=== PATIENT | female | born 1950 | race Caucasian/White ===

== ENCOUNTER 2025-01-27 18:37 | Emergency (ER) | payer MEDICARE, SELFPAY ==
[2025-01-27 18:38] VITALS: BP 105/76; PULSE 96; RESP 17; O2SAT 93
[2025-01-27 18:45] VITALS: TEMP 36.8
--- NOTE | 2025-01-27 18:47 | ECG_ITS ---
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 Measurements Intervals [place] Rate: 61 P: 59 UT: 119 QRS: -23 QRSD: 77 T: 27 QT: 366 QTc: 370 Interpretive Statements SINUS RHYTHM WITH SHORT UT INTERVAL POSSIBLE LEFT ATRIAL ENLARGEMENT [-0.1mV P-WAVE IN V1/V2] BORDERLINE LEFT AXIS DEVIATION [QRS AXIS < -20] J POINT ST ELEVATION IN THE LATERAL LIMB LEADS, CONSIDER EARLY REPOLARIZATION, INJURY,OR FOCAL PERICARDITIS No previous ECG available for comparison Electronically Signed On 01-29-2025 13:52:13 CDT by Jeancarlos Ceja M.D. [email or web address]
--- NOTE | 2025-01-27 18:47 | CTR_ITS ---
PROCEDURE INFORMATION: Exam: CT Head Without Contrast Exam date and time: 01/27/2025 6:56 PM Age: 74 years old Clinical indication: Injury or trauma; Blunt trauma (contusions or hematomas); EMS arrival for ground level fall at home. C collar in place. ; Additional info: Fall/maybe hit head/neckpain TECHNIQUE: Imaging protocol: Computed tomography of the head without contrast. Radiation optimization: All CT scans at this facility use at least one of these dose optimization techniques: automated exposure control; mA and/or kV adjustment per patient size (includes targeted exams where dose is matched to clinical indication); or iterative reconstruction. COMPARISON: CT cervical spin wo con* [id number] 01/27/2025 6:56 PM RADIATION DOSE METRICS: Total DLP (mGy-cm): 1210.9 FINDINGS: Brain: Normal. No hemorrhage. Unremarkable white matter. No mass effect. Cerebral ventricles: No ventriculomegaly. Paranasal sinuses: Visualized sinuses are unremarkable. No fluid levels. Mastoid air cells: Visualized mastoid air cells are well aerated. Bones: Unremarkable. No acute fracture. Soft tissues: Unremarkable. CT/CT head wo con* [id number] IMPRESSION: No acute intracranial abnormality.
--- NOTE | 2025-01-27 18:47 | CTR_ITS ---
PROCEDURE INFORMATION: Exam: CT Cervical Spine Without Contrast Exam date and time: 01/27/2025 6:56 PM Age: 74 years old Clinical indication: Injury or trauma; Blunt trauma; Prior surgery; Surgery date: 6+ months; Surgery type: Cervical fusion; EMS arrival for ground level fall at home. C collar in place. ; Additional info: Fall/neck pain TECHNIQUE: Imaging protocol: Computed tomography of the cervical spine without contrast. Radiation optimization: All CT scans at this facility use at least one of these dose optimization techniques: automated exposure control; mA and/or kV adjustment per patient size (includes targeted exams where dose is matched to clinical indication); or iterative reconstruction. COMPARISON: CT head wo con* [id number] 01/27/2025 6:56 PM RADIATION DOSE METRICS: Total DLP (mGy-cm): 266 FINDINGS: Bones: Fusion hardware of the cervical spine. Probable at least moderate bilateral neural foraminal narrowing at the C 3 4 level. No definite acute fracture, subluxation, dislocation. Lungs: Lung apices are normal. Vasculature: Aortic atherosclerosis. Soft tissues: Unremarkable. CT/CT cervical spin wo con* [id number] IMPRESSION: Aortic atherosclerosis. No definite acute fracture, subluxation, dislocation of the cervical spine.
--- NOTE | 2025-01-27 18:47 | XRR_ITS ---
PROCEDURE INFORMATION: Exam: XR Right Shoulder Exam date and time: 01/27/2025 7:09 PM Age: 74 years old Clinical indication: Injury or trauma; Blunt trauma (contusions or hematomas); Right; Prior surgery; Surgery date: 6+ months; Surgery type: Cervical fusion; EMS arrival for ground level fall at home. C/O RT shoulder pain; Additional info: Fall/pain TECHNIQUE: Imaging protocol: Radiologic exam of the right shoulder. Views: 2 or more views. COMPARISON: CT cervical spin wo con* [id number] 01/27/2025 6:56 PM FINDINGS: Bones/joints: Moderate to severe degenerative changes of the AC joint and glenohumeral joint. Postsurgical changes of the lower cervical spine. Soft tissues: Normal. XR/XR shoulder RT min 2V* [id number] IMPRESSION: No definite acute fracture, subluxation, dislocation.
--- NOTE | 2025-01-27 18:47 | XRR_ITS ---
PROCEDURE INFORMATION: Exam: XR Left Hip Exam date and time: 01/27/2025 7:09 PM Age: 74 years old Clinical indication: Injury or trauma; Blunt trauma (contusions or hematomas); EMS arrival for ground level fall at home. C/O left hip pain. ; Additional info: Fall/hip pain, w/ pelvis TECHNIQUE: Imaging protocol: Radiologic exam of the left hip. Views: 2 or 3 views hip with pelvis when performed. COMPARISON: No relevant prior studies available. FINDINGS: Exam limited by body habitus. Bones/joints: Unremarkable. No acute fracture. Soft tissues: Unremarkable. XR/XR hip LT 2-3V wo/w pel* [id number] IMPRESSION: No acute findings.
--- OUTSIDE RECORDS SUMMARY | 2025-01-27 18:47 | XMS_ITS | Clinical Summary ---
Author Organization [facility] Address [address] [place] [address] [place] [address] Phone Care Team Providers Care Relationship Counselor Name Role Phone Unavailable Primary Care Provider Unavailabl e Allergies Active Allergy Reactions Criticality Noted Date Comments Morphine Itching High 10/18/2024 Medications pregabalin (Lyrica) 150 mg capsule Take 150 mg by mouth 2 (two) times a day. 07/27/2024 Active levothyroxine (Synthroid, Levoxyl) 112 mcg tablet Take 112 mcg by mouth 1 (one) time each day before breakfast. 08/24/2024 Active traZODone (Desyrel) 100 mg tablet Take 100 mg by mouth every night. 08/24/2024 Active atorvastatin (Lipitor) 10 mg tablet Take 10 mg by mouth 1 (one) time each day. 08/24/2024 Active Symbicort 80-4.5 mcg/actuation inhaler Inhale 2 puffs 2 (two) times a day. 04/21/2024 Active Encounters Date Type Department Care Team Description 12/14/2024 Orders Only [facility] [address] [place] [id number] Lakesha Castro LPN Bilateral carpal tunnel syndrome (Primary Dx) 11/27/[address] [facility] MED[facility] OFFICE BUILDING [address] [id number] Manohar Westbrook MD SY MRI image request and order questions from Last 3 Months Social History Tobacco Use Types Packs/Day Years Used Date Smoking Tobacco: Never Smokeless Tobacco: Never Tobacco Cessation:Counseling Given: Not Answered PHQ-2 Answer Date Recorded Patient Health Questionnaire-2 Score 0 10/18/2024 [facility] - Mental Health Answer Date Recorde d Little interest or pleasure in doing things Not at all 10/18/2024 Feeling down, depressed, or hopeless Not at all 10/18/2024 Feeling of Stress Not on file 10/18/2024 Comments Unknown Sex and Gender Information Value Date Recorded Sex Assigned at Not on file Legal Sex Female 9:13 AM CDT Gender Identity Not on file Sexual Orientation Not on file Last Filed Vital Signs Vital Sign Reading Time Taken Comments Blood Pressure - - Pulse - - Temperature - - Respiratory Rate 18 10/18/2024 2:21 PM CDT Oxygen Saturation - - Inhaled Oxygen Concentration - - Weight 99.8 kg (220 lb) 10/18/2024 2:21 PM CDT Height 149.9 cm (4' 11 ) 10/18/2024 2:21 PM CDT Body Mass Index 44.43 10/18/2024 2:21 PM CDT Plan of Treatment Health Maintenance Due Date Last Done Comments CT Colonography 1950 Colonoscopy 1950 Colorectal Cancer Screening 1950 FIT-DNA 1950 FIT 1950 FOBT 1950 Sigmoidoscopy 1950 MMR Vaccines (1 of 1 - Stand olamide series) 1953 DTaP,Tdap,and Td Vaccines (1 - Tdap) 11/26/1959 Varicella Vaccines (1 of 2 - 13+ 2-dose series) 1965 Social Drivers of Health (SDoH) 1970 Mammogram 1992 Pneumococcal Vaccine: 50+ Ye ars (1 of 1 - PCV) 2002 Zoster Vaccines (1 of 2) 2002 RSV Vaccines (1 - Risk 60-74 years 1-dose series) 2012 Complete Fall Risk Assessment 2017 COVID-19 Vaccine (1 - 2023-2 5 season) 2024 Influenza Vaccine (#1) 2025 Depression Screening 10/19/2025 10/18/2024 HIB Vaccines Aged Out No longer eligi ble based on patient's age to complete this topic HPV Vaccines Aged Out No longer eligi ble based on patient's age to complete this topic Hepatitis A Vaccines Aged Out No long er eligible based on patient's age to complete this topic Hepatitis B Vaccines Aged Out No long er eligible based on patient's age to complete this topic IPV Vaccines Aged Out No longer eligi ble based on patient's age to complete this topic Meningococcal B Vaccine Aged Out No l onger eligible based on patient's age to complete this topic Meningococcal Vaccine Aged Out No cj sim eligible based on patient's age to complete this topic Pneumococcal Vaccine Aged Out No long er eligible based on patient's age to complete this topic Rotavirus Vaccines Aged Out No longer eligible based on patient's age to complete this topic Insurance [employer] MEDICARE
--- OUTSIDE RECORDS SUMMARY | 2025-01-27 18:47 | XMS_ITS | Encounter Summary ---
Author Organization [employer] Address 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 No 12/16/2024 Comments No Sex and Gender Information Value Date Recorded Sex Assigned at Not on file Legal Sex Female 2:20 PM CDT Gender Identity Not on file Sexual Orientation Not on file documented as of this encounter Plan of Treatment Not on file documented as of this encounter Visit Diagnoses Not on filedocumented in this encounter
--- OUTSIDE RECORDS SUMMARY | 2025-01-27 18:47 | XMS_ITS | Clinical Summary ---
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 Active traZODone (DESYREL) 50 mg tablet Take 50 mg by mouth daily at bedtime. Active lamoTRIgine (LaMICtal) 100 mg tablet Take 100 mg by mouth daily. Active DULoxetine (CYMBALTA) 20 mg Capsule, Delayed Release(E.C.) Take 20 mg by mouth daily. Active levothyroxine 25 mcg tablet Take 25 mcg by mouth daily in the morning. Active citalopram (CeleXA) 10 mg tablet Take 10 mg by mouth daily. Active traMADol (ULTRAM) 50 mg tablet Take by mouth every 6 hours as needed for Pain. Active Encounters Date Type Department Care Team Description 01/24/2025 External Device Data [facility]CTION Provider, Abstract 01/17/2025 External Device Data [facility]CTION Provider, Abstract 01/16/2025 External Device Data [facility]CTION Provider, Abstract 12/27/2024 Orders Only [facility] Admitting [address] [facility] [address] [place] [id number] Mary Posada DO Bilateral lower extremity edema (Primary Dx); Dyspnea, unspecified type 12/19/2024 External Device Data [facility]STRACTION Provider, Abstract 12/19/2024 External Device Data [facility]STRACTION Provider, Abstract 12/19/2024 External Device Data [facility]STRACTION Provider, Abstract 12/16/2024 2:20 PM CDT - 12/16/2024 3:55 PM CDT Emergency [facility] Emergency Medicine [address] [place] [address] Thomas Mora DO Acute congestive heart failure, unspecified heart failure type (CMS/HCC) (Primary Dx) Discharge Disposition: Home or Self Care 12/16/2024 Travel from Last 3 Months Social History Tobacco Use Types Packs/Day Years Used Date Smoking Tobacco: Never Smokeless Tobacco: Never Tobacco Cessation:Counseling Given: Not Answered Alcohol Use Standard Drinks/Week Comments Never 0 [...] Sign Reading Time Taken Comments Blood Pressure 113/96 12/16/2024 3:45 PM CDT Pulse 87 12/16/2024 3:45 PM CDT Temperature 36.5 C (97.7 F) 12/16/2024 2:20 PM CDT Respiratory Rate 22 12/16/2024 3:45 PM CDT Oxygen Saturation 94% 12/16/2024 3:45 PM CDT Inhaled Oxygen Concentration - - Weight 110.1 kg (242 lb 11.2 oz) 12/16/2024 2:20 PM CDT Height 149.9 cm (4' 11 ) 12/16/2024 2:20 PM CDT Body Mass Index 49.02 12/16/2024 2:20 PM CDT Plan of Treatment Health Maintenance Due Date Last Done Comments DTAP/TDAP/TD VACCINES (1 - Tdap) 11/26/1971 BREAST CANCER SCREENING 1992 COLORECTAL SCREENING 1997 Colorectal Cancer Screening 1997 FIT-DNA Q 3 years 1997 FIT/FOBT Q 1 year 1997 Flex Sig/CT Colonography Q 5 years 1997 PNEUMOCOCCAL VACCINE 50+ YEARS (1 of 1 - PCV) 11/26/19 03 ZOSTER VACCINE (1 of 2) 2002 RSV VACCINE (60+ or ) (1 - Risk 60-74 years 1-dose series) 2012 OSTEOPOROSIS SCREENING 2017 INFLUENZA VACCINE (#1) 2024 Procedures Procedure Name Priority Date/Time Associated Diagnosis Comments XR CHEST PA OR AP 1 VW Stat 3:25 PM CDT TROPONIN BASELINE, 5TH GEN Stat 12/16/2024 2:53 PM CDT BRAIN NATRIURETIC PEPTIDE, BNP OR PROBNP Stat 12/16/2024 2:53 PM CDT COMPREHENSIVE METABOLIC PANEL Stat 12/16/2024 2:53 PM CDT CBC WITH DIFFERENTIAL Stat 12/16/2024 2:53 PM CDT from Last 3 Months Results * XR CHEST PA OR AP 1 VW (12/16/2024 3:25 PM CDT) Anatomical Region Laterality Modality Chest Computed Radiogr aphy 12/16/2024 3:25 PM CDT Impressions 12/16/2024 3:43 PM CDT Impression: No evidence of infiltrates. Narrative 12/16/2024 3:43 PM CDT Exam: XR CHEST PA OR AP 1 VW Date/Time of Exam: 12/16/2024 3:25 PM Reason For Exam: Shortness of Breath SOB Diagnosis: See Reason for Exam The heart size is normal. The lungs are clear. No pneumothorax is seen. Procedure Note Gonzalo Saab MD - 12/16/2024 Exam: XR CHEST PA OR AP 1 VW Date/Time of Exam: 12/16/2024 3:25 PM Reason For Exam: Shortness of Breath SOB Diagnosis: See Reason for Exam The heart size is normal. The lungs are clear. No pneumothorax is seen. Impression: No evidence of infiltrates. Thomas Griggs Law DO DIAGNOSTIC IMAGING ORDERABLES Final Result * TROPONIN BASELINE, 5TH GEN (12/16/2024 2:53 PM CDT) TROPONIN T, BASELINE 5TH GEN 9 <=10 ng/L 12/16/2024 3:28 PM CDT [facility] Blood Venipuncture / Unknown 12/16/2024 2:53 PM CDT 12/16/2024 3:02 PM CDT Narrative [facility] - 12/16/2024 3:28 PM CDT Troponin Detectable but normal range. Thomas Griggs Law DO CHEMISTRY ORDERABLES Final Res ult [facility] CLIA # [id number] [address] [place] [address] * (ABNORMAL) CBC WITH DIFFERENTIAL (12/16/2024 2:53 PM CDT) WBC 6.8 4.0 - 10.0 K/uL 12/16/2024 3:15 PM [facility] RBC 4.85 3.93 - 5.22 M/uL 12/16/2024 3:15 PM [facility] HEMOGLOBIN 12.8 11.2 - 15.7 g/dL 12/16/2024 3:15 PM [facility] HEMATOCRIT 40.1 34.1 - 44.9 % 12/16/2024 3:15 PM [facility] MCV 82.7 79.4 - 94.8 fL 12/16/2024 3:15 PM [facility] MCH 26.4 25.6 - 32.2 pg 12/16/2024 3:15 PM [facility] MCHC 31.9(L) 32.2 - 35.5 g/dL 12/16/2024 3:15 PM [facility] RDW 15.1(H) 11.0 - 14.5 % 12/16/2024 3:15 PM [facility] RDW-STDEV 45.1 36.9 - 56.9 fL 12/16/2024 3:15 PM [facility] PLATELETS 300 163 - 337 K/uL 12/16/2024 3:15 PM CDT [facility] MPV 9.0(L) 10.0 - 14.8 fL 12/16/2024 3:15 PM [facility] NEUTROPHILS 63 34 - 71 % 12/16/2024 3:15 PM [facility] LYMPHOCYTES 18(L) 19 - 52 % 12/16/2024 3:15 PM T [facility] MONOCYTES 12 5 - 13 % 12/16/2024 3:15 PM CDT [facility] EOSINOPHILS 6 1 - 6 % 12/16/2024 3:15 PM CDT [facility] BASOPHILS 0 0 - 1 % 12/16/2024 3:15 PM [facility] IMMATURE GRANULOCYTES 1 % 12/16/2024 3:15 PM [facility] NEUTROPHIL ABSOLUTE 4.28 1.56 - 6.13 K/uL 12/16/2024 3:15 PM [facility] LYMPHOCYTE ABSOLUTE 1.24 1.20 - 3.40 K/uL 12/16/2024 3:15 PM T [facility] MONOCYTE ABSOLUTE 0.82(H) 0.24 - 0.36 K/uL 12/16/2024 3:15 PM [facility] EOSINOPHIL ABSOLUTE 0.37(H) 0.04 - 0.36 K/uL 12/16/2024 3:15 PM [facility] BASOPHILS ABSOLUTE 0.03 0.01 - 0.08 K/uL 12/16/2024 3:15 PM T [facility] IMMATURE GRANULOCYTES ABSOLUTE 0.04 K/uL 12/16/2024 3:15 PM [facility] Blood Venipuncture / Unknown 12/16/2024 2:53 PM CDT 12/16/2024 3:02 PM CDT Thomas Griggs Law DO HEMATOLOGY ORDERABLES Final Re sult [facility] CLIA # [id number] [address] [place] [address] * (ABNORMAL) BRAIN NATRIURETIC PEPTIDE, BNP OR PROBNP (12/16/2024 2:53 PM CDT) PROBNP, N TERMINAL 453(H) 0 - 125 pg/mL 12/16/2024 3:28 PM CDT [facility] Comment: INTERPRETIVE COMMENT based on diagnosis: Diagnostic NT pro-BNP cutoffs for Heart Failure in the absence of renal failure is suggested for the following ranges <75 years: <125 pg/mL >=75 years: <450 pg/mL Exclusionary rule out cut-point for Acute Decompensated Heart Failure(ADHF) All ages: <300 pg/mL Diagnostic NT pro-BNP cutoffs for Acute Decompensated Heart Failure(ADHF) in the absence of renal failure is suggested for the following ages <50 years: > 450 pg/mL 50-75 years: > 900 pg/mL >75 years: >1800 pg/mL Blood Venipuncture / Unknown 12/16/2024 2:53 PM CDT 12/16/2024 3:02 PM CDT us Thomas Griggs Law DO CHEMISTRY ORDERABLES Final [id number] [address] [place] [address] * (ABNORMAL) COMPREHENSIVE METABOLIC PANEL (12/16/2024 2:53 PM CDT) SODIUM 142 136 - 145 mmol/L 12/16/2024 3:28 PM CDT [facility] POTASSIUM 4.1 3.5 - 5.1 mmol/L 12/16/2024 3:28 PM CDT [facility] CHLORIDE 105 98 - 107 mmol/L 12/16/2024 3:28 PM CDT [facility] CO2 27 22 - 29 mmol/L 12/16/2024 3:28 PM CDT [facility] CALCIUM 9.4 8.8 - 10.2 mg/dL 12/16/2024 3:28 PM CDT [facility] BUN 19 8 - 23 mg/dL 12/16/2024 3:28 PM [facility] CREATININE 0.88 0.51 - 0.95 mg/dL 12/16/2024 3:28 PM [facility] Comment:The GFR result is no t clinically significant on patients <18 or >70 years of age. GLUCOSE 101(H) 74 - 99 mg/dL 12/16/2024 3:28 PM [facility] TOTAL PROTEIN 6.3(L) 6.6 - 8.7 g/dL 12/16/2024 3:28 PM [facility] ALBUMIN 3.5 3.5 - 5.2 g/dL 12/16/2024 3:28 PM [facility] BILIRUBIN TOTAL 0.2 0.0 - 1.2 mg/dL 12/16/2024 3:28 PM [facility] ALKALINE PHOSPHATASE 70 35 - 104 U/L 12/16/2024 3:28 PM [facility] AST 21 0 - 35 U/L 12/16/2024 3:28 PM [facility] ALT 7 0 - 35 U/L 12/16/2024 3:28 PM [facility] GFR >60 mL/min/1.7 3 sq meter 12/16/2024 3:28 PM [facility] Comment:eGFR calculated with 2020 CKD-EPI equation. Vegetarian diet, extremely high or low muscle mass, and may affect results. Cystatin C with Glomerular Filtration Rate is a suitable alternative for these patients. ANION GAP 10 5 - 20 mmol/L 12/16/2024 3:28 PM [facility] Blood Venipuncture / Unknown 12/16/2024 2:53 PM CDT 12/16/2024 3:02 PM CDT us Thomas Griggs Law DO CHEMISTRY ORDERABLES Final Res ult [facility] CLIA # [id number] [address] [place] [address] from Last 3 Months Insurance [facility] DUAL COMPLETE PPO [facility] [id number]
--- NOTE | 2025-01-27 18:49 | W.ED.FALL ---
HPI - Fall General: Chief Complaint: Fall Stated Complaint: left hip/right shoulder pain s/p fall Time Seen by Provider: 01/27/25 18:39 Source: patient and EMS Mode of arrival: EMS Limitations: no limitations History of Present Illness: Patient is a 74-year-old female who is brought into the emergency department by ambulance due to a fall that occurred around 1500 at home. She states that she was walking out of her trailer, and stepped off wrong and fell onto her left hip. Also states that she tried to grab the rail with her right arm and is having pain in her right shoulder. She hollered for her family, and they were able to get her up and sit her in her recliner, and on EMS arrival she was seated and comfortable. She does not remember if she hit her head but is having mild right lateral neck pain that she thinks is from the shoulder. No loss of consciousness or use of blood thinner. She states that prior to the fall, she did take a couple of tramadol and only takes this as needed for chronic pain. No other injuries with the fall, no chest pain or shortness of breath or palpitations prior to the fall. No dizziness or lightheadedness at this time. Vitals are within normal limits. She uses O2 as needed. MD complaint: fall Onset (ago): hour(s) Fall from: down stairs (#) Fall witnessed: yes, by family Place fall occurred: home Loss of consciousness: None Prolonged down time: no Symptoms prior to fall: none Context: tripped/slipped Location of injury - extremities: Left: thigh and Right: shoulder Associated symptoms-after fall: Reports neck pain; Denies abdominal pain, chest pain or headache(s) Related Data Previous Rx's ?Medication ?Instructions ?Recorded cefdinir 300 mg capsule 300 mg PO BID 10 days #20 caps 01/27/25 Allergies Allergy/AdvReac Type Severity Reaction Status Date / Time morphine Allergy ADR-Itching Verified 01/27/25 18:46 Review of Systems General: Reports: 10 or more systems reviewed and unremarkable except in HPI and below Const: Reports: other (fall); Denies: fever(s) or chills Card: Denies: chest pain Resp: Denies: dyspnea or productive cough GI: Denies: abdominal pain, nausea, vomiting or diarrhea : Denies: flank pain Musc: Reports: neck pain and joint pain (left hip/right shoulder); Denies: back pain, extremity pain, extremity swelling, joint swelling, joint redness, joint warmth, limited range of motion or muscle weakness Skin/Breast: Denies: rash Neuro: Denies: headache(s), numbness in extremities or weakness in extremities Physical Exam Const: COMMON NORMALS: no acute distress, patient oriented x3 and no limitations GENERAL APPEARANCE: cooperative, comfortable and well developed ORIENTATION/CONSCIOUSNESS: Yes awake, Yes oriented to person, Yes oriented to place and Yes oriented to time HENMT: COMMON NORMALS: normocephalic, atraumatic and hearing grossly normal bilaterally HEAD & SCALP: normocephalic and atraumatic; no Claudio's sign, no raccoon eyes and no scalp tenderness FACE & SINUS: normal facial exam Eye: COMMON NORMALS: Equal, round and reactive pupils present, EOMs intact bilaterally and conjunctivae normal CONJUNCTIVA: Yes conjunctivae normal PUPIL: Yes Equal, round and reactive pupils present Neck/C-Spine: CERVICAL SPINE: Yes collar present OTHER: No cervical spine tenderness to palpation, mild pain with range of motion. Some mild pain to the right paracervical muscles. Chest: COMMONS NORMALS: normal inspection of the chest and normal palpation of entire chest wall Resp: COMMON NORMALS: normal respiratory effort, No retractions, No use of accessory muscles and clear to auscultation bilaterally AUSCULTATION: clear to auscultation bilaterally Cardio: COMMON NORMALS: regular rate, regular rhythm, No clicks present (Cardio), No murmurs present (Cardio) and No rub (Cardio) RATE: regular rate RHYTHM: regular rhythm GI: COMMON NORMALS: Normal to inspection, nondistended, normoactive bowel sounds present, Soft to palpation and non-tender AUSCULTATION: Yes normoactive bowel sounds PALPATION: Yes Soft to palpation RECTAL EXAM: deferred Back/Pelvis: COMMON NORMALS: thoracic and lumbar spine normal to inspection, no thoracic nor lumbar tenderness and thoraco-lumbar ROM normal Extremity: NARRATIVE EXTREMITY EXAM: There is mild tender to palpation to left lateral hip, diminished strength though there is no obvious deformity such as internal or external rotation. Distal neurovascular exam is unremarkable. Tender to palpation to right anterior shoulder, full range of motion and no obvious signs of deformity or trauma. All other joints and extremities palpated and nontender. Neuro: COMMON NORMALS: patient oriented x3, CN's II-XII intact bilaterally, moves all extremities, no focal motor deficits and no sensory deficits noted SENSORIUM/ORIENTATION: Yes oriented to person, Yes oriented to place and Yes oriented to time Skin: COMMON NORMALS: no rashes or lesions noted GENERAL SKIN EXAM: no rashes or lesions noted Course Vital Signs: Vital signs: Vital Signs Temperature 98.2 F 01/27/25 18:45 Pulse Rate 87 01/27/25 21:11 Respiratory Rate 16 01/27/25 21:11 Blood Pressure 105/76 01/27/25 18:38 Pulse Oximetry 95 01/27/25 21:11 Oxygen Delivery Me thod Room Air 01/27/25 20:00 MDM - Fall Medical Decision Making Patient presented by ambulance after a fall, injuring her left hip and right shoulder. There is no deformity on exam of either of these joints, I had little concerned that there was a fracture and x-ray confirms that there are no acute findings. Unknown if she hit her head, head and neck CT were clear of any issues as well. She is at baseline mentation, states that she took tramadol shortly before the fall, and actually took 2 of them when she normally only takes 1 as needed for chronic pain. Also evidence of a UTI on urinalysis, and this could also contributed to her fall. An EKG was reassuring that there was no acute arrhythmia that may have caused this, and lab work was also reassuring. She will be started on antibiotics, informed her to be cautious with taking her pain medications and to follow-up with her primary care provider for routine reevaluation. Lab Data 01/27/25 19:25 01/27/25 19:25 Radiology Impressions Cervical Spine CT 01/27/25 18:47 IMPRESSION: Aortic atherosclerosis. No definite acute fracture, subluxation, dislocation of the cervical spine. Head CT 01/27/25 18:47 IMPRESSION: No acute intracranial abnormality. Hip/Pelvis X-Ray 01/27/25 18:47 IMPRESSION: No acute findings. Shoulder X-Ray 01/27/25 18:47 IMPRESSION: No definite acute fracture, subluxation, dislocation. Laboratory Results WBC 6.14 10^3/uL (3.29-11.43) 01/27/25 19:25 RBC 5.20 10^6/uL (3.85-5.65) 01/27/25 19: Hgb 13.40 g/dL (11.27-16.99) 01/27/25: Hct 43.0 % (36-47) 01/27/25: MCV 82.7 fl (85-98) L 01/27/25: MCH 25.8 pg (27-33) L 01/27/25: MCHC 31.2 g/dL (30-55) 01/27/25: RDW 15.1 % (12.1-15.1) 01/27/25: Plt Count 270 10^3/cmm (157-399) 01/27/25: MPV 9.1 fL (7.4-10.4) 01/27/25: Neut % (Auto) 59.6 % 01/27/25: Lymph % (Auto) 25.1 % 01/27/25: [place] % (Auto) 11.4 % 01/27/25: Eos % (Auto) 3.3 % 01/27/25: Baso % (Auto) 0.3 % 01/27/25: Neut # (Auto) 3.66 10^3/uL (1.8-7.7) 01/27/25: Lymph # (Auto) 1.5 10^3/uL (0.8-4.8) 01/27/25: [place] # (Auto) 0.7 10^3/uL (0.2-0.9) 01/27/25: Eos # (Auto) 0.2 10^3/uL (0.0-0.8) 01/27/25: Baso # (Auto) 0.0 10^3/uL (0.0-0.1) 01/27/25: Nucleated RBC % (auto) 0 % 01/27/25: Nucleated RBCs # 0.0 /100WBC 01/27/25 19: Sodium 139 mmol/L (136-145) 01/27/25: Potassium 4.3 mmol/L (3.5-5.1) 08/30/25 19:25 Chloride 101 mmol/L (98-107) 01/27/25 19:25 Carbon Dioxide 30 mmol/L (22-29) H 01/27/25 19:25 Anion Gap 12.3 (5-19) 01/27/25 19:25 BUN 18 mg/dL (8-23) 01/27/25 19:25 Creatinine 0.7 mg/dL (0.5-0.9) 01/27/25 19:25 GFR Calculation Not Reportable 01/27/25 19:25 Glucose 102 mg/dL (65-115) 01/27/25 19:25 Calculated Osmolality 290 mOsm/kg (285-295) 01/27/25 19:25 Calcium 9.4 mg/dL (8.5-10.5) 01/27/25 19: Total Bilirubin 0.3 mg/dL (0.15-1.2) 01/27/25 19:25 AST 15 U/L (0-32) 01/27/25: ALT 7 U/L (0-33) 01/27/25 19:25 Alkaline Phosphatase 72 U/L (35-105) 01/27/25 19:25 Total Protein 6.9 g/dL (6.6-8.7) 01/27/25 19:25 Albumin 3.8 g/dL (3.5-5.2) 01/27/25 19:25 Globulin 3.1 g/dL (1.3-4.6) 01/27/25 19:25 Urine Color Yellow (Yellow) 01/27/25 20:09 Urine Appearance Cloudy (CLEAR) A 01/27/25 20:09 Urine pH 6.0 (5-7) 01/27/25 20:09 Ur Specific [place] 1.010 (1.005-1.030) 01/27/25 20:09 Urine Protein Negative (Negative) 01/27/25 20:09 Urine Glucose (UA) Negative (Normal) 01/27/25 20: Urine Ketones Negative (Negative) 01/27/25 20: Urine Blood Negative (Negative) 01/27/25 20:09 Urine Nitrate Positive (Negative) A 01/27/25 20: Urine Bilirubin Negative (Negative) 01/27/25 20: Urine Urobilinogen 1.0 mg/dL (Negative) 08/30/25 20:09 Ur Leukocyte Esterase 2+ (Negative) A 01/27/25 20:09 Urine RBC 0-2 /hpf (0-2) 01/27/25 20:09 Urine WBC 21-50 /hpf (0-5) H 01/27/25 20:09 Ur Squamous Epith Cells 6-10 /hpf (0-5) 01/27/25 20:09 Amorphous Sediment Not Reportable 01/27/25 20:09 Urine Bacteria 4+ /hpf (NONE) H 01/27/25 20:09 Hyaline Casts 2.05 /lpf 01/27/25 20:09 All radiology interpretation(s) finalized by discharge Discharge Plan Discharge Patient Disposition: Home Clinical Impression: Fall Qualifiers: Encounter type: initial encounter Qualified Code(s): W19.XXXA - Unspecified fall, initial encounter Urinary tract infection Qualifiers: Urinary tract infection type: acute cystitis Hematuria presence: without hematuria Qualified Code(s): N30.00 - Acute cystitis without hematuria Muscle strain of right shoulder Qualifiers: Encounter type: initial encounter Qualified Code(s): S46.911A - Strain of unspecified muscle, fascia and tendon at shoulder and upper arm level, right arm, initial encounter Contusion of hip, left Qualifiers: Encounter type: initial encounter Qualified Code(s): S70.02XA - Contusion of left hip, initial encounter Condition: Stable Prescriptions: New cefdinir 300 mg capsule 300 mg PO BID 10 Days Qty: 20 0RF Discharge Orders: Discharge ED (Routine); Ordered 01/27/25 Ordered By: Anson Deleon Patient Instructions: Patient Portal & Chace Instructions Activity Restrictions/Additional Instructions: Discharge Instructions After Fall Discharge Instructions for 74-year-old Female After Fall and UTI Diagnosis Summary of Hospital Course: - Presented after a fall, with injury to left hip and right shoulder. - CT head/neck and x-rays negative for acute injury. - No evidence of intracranial or cervical spine injury. - No evidence of fracture or dislocation. - Laboratory studies and EKG unremarkable. - Fall likely related to excessive tramadol intake. - Evidence of urinary tract infection; cefdinir prescribed. Fall Risk and Prevention: - The [place] [employer] recommends comprehensive assessment of fall etiology in older adults, including medication review, gait/balance evaluation, and screening for orthostatic hypotension. - Tramadol and other centrally acting medications increase fall risk; consider dose reduction or discontinuation if clinically appropriate. - Advise home safety modifications (removal of tripping hazards, installation of grab bars, adequate lighting). - Encourage use of assistive devices as needed. - Schedule follow-up for medication review and fall risk assessment. Urinary Tract Infection Management: - The Infectious Diseases [employer] of [place] recommends antimicrobial therapy only for symptomatic UTI or systemic infection in older adults with bacteriuria and falls; treatment of asymptomatic bacteriuria is not indicated due to risk of adverse outcomes and lack of benefit. - Cefdinir is appropriate for bacterial UTI; ensure indication is based on clinical symptoms (dysuria, frequency, urgency, fever, or systemic signs). - Chlorine Operator patient to complete the full course of cefdinir as prescribed, even if symptoms improve early. - Advise against use of antacids containing magnesium or aluminum, and iron supplements within 2 hours of cefdinir dosing, as these may reduce absorption. - Monitor for adverse effects, including diarrhea (most common), and instruct patient to report severe or persistent diarrhea, especially if associated with blood or fever, as this may indicate Clostridioides difficile infection. - Dose adjustment is not required in elderly patients unless creatinine clearance is <30 mL/min; monitor renal function as appropriate. Pain Management: - Minimize use of tramadol and other sedating medications to reduce fall risk. - Consider non-pharmacologic pain management strategies and non-opioid analgesics as appropriate. Activity and Follow-up: - Gradually resume activity as tolerated; avoid strenuous activity until cleared. - Monitor for new or worsening pain, swelling, or inability to bear weight. - Schedule follow-up with primary care provider within 1 week for reassessment of fall risk, medication review, and UTI response. When to Seek Immediate Medical Attention: - New or worsening confusion, weakness, or inability to ambulate. - Fever, chills, or signs of systemic infection. - Severe abdominal pain, persistent vomiting, or signs of dehydration. - Severe or bloody diarrhea. - Chest pain, shortness of breath, or palpitations. Patient Education: - Antibacterial drugs, including cefdinir, treat bacterial infections only; they do not treat viral infections. - Skipping doses or not completing the full course may decrease effectiveness and increase risk of resistance. - Report any new symptoms or adverse reactions promptly. Medication List: - Cefdinir: 300mg by mouth twice daily for 10 days. Additional Instructions: - Avoid driving or operating heavy machinery until cleared, due to fall risk and medication effects. - Maintain hydration and nutrition. - Arrange for assistance at home as needed. References: - Infectious Diseases [employer] [place] guidelines for management of asymptomatic bacteriuria and UTI in older adults. - FDA labeling for cefdinir, including geriatric use, precautions, and drug interactions. - [place] [employer] guidelines for fall assessment and prevention. Print Language: Amharic Coding Level of Care Code ED Director [employer] for [employer]
[2025-01-27 19:18] VITALS: PULSE 87; RESP 16; O2SAT 92
[2025-01-27 19:39] VITALS: PULSE 89; RESP 16; O2SAT 91
[2025-01-27 19:39] LABS: Hematocrit 43.0 % (36-47); Hemoglobin 13.40 g/dL (11.27-16.99); Mean Corpuscular HGB Conc 31.2 g/dL (30-55); Mean Corpuscular Hemoglobin 25.8 pg (27-33); Mean Corpuscular Volume 82.7 fl (85-98); Nucleated Red Blood Cells % 0 %; Platelet Count 270 10^3/cmm (157-399); Red Blood Count 5.20 10^6/uL (3.85-5.65); White Blood Count 6.14 10^3/uL (3.29-11.43)
[2025-01-27 20:00] VITALS: PULSE 87; RESP 16; O2SAT 92
[2025-01-27 20:01] LABS: Alanine Aminotransferase 7 U/L (0-33); Albumin Level 3.8 g/dL (3.5-5.2); Alkaline Phosphatase 72 U/L (35-105); Anion Gap 12.3 (5-19); Aspartate Amino Transferase 15 U/L (0-32); Blood Urea Nitrogen 18 mg/dL (8-23); Calcium 9.4 mg/dL (8.5-10.5); Carbon Dioxide 30 mmol/L (22-29); Chloride 101 mmol/L (98-107); Globulin 3.1 g/dL (1.3-4.6); Glucose 102 mg/dL (65-115); Osmolality Calculated 290 mOsm/kg (285-295); Potassium 4.3 mmol/L (3.5-5.1); Sodium 139 mmol/L (136-145); Total Protein 6.9 g/dL (6.6-8.7)
[2025-01-27 20:27] LABS: Glucose Urine UA Negative (Normal); Nitrate Urine Positive (Negative); Specific Gravity, Urine 1.010 (1.005-1.030)
[2025-01-27 20:32] LABS: Add Urine Microscopic? YES
[2025-01-27 20:53] LABS: UA Slide Review UA Slide Review Perf
[2025-01-27 21:11] VITALS: PULSE 87; RESP 16; O2SAT 95
--- NOTE | 2025-01-27 21:18 | PC.NURSE ---
this nurse assisted pt in ambulating to the doorway of the room and back to the bed with little assistance. pt states she ambulates with crutches at baseline. pt states she is okay with being discharged home at this time.
--- NOTE | 2025-01-27 21:30 | PC.NURSE ---
spoke with pt regarding questions about discharge from family. pt states she is accepting of discharge, she just needs to wait for a ride until 0500. pt is satisfied with home health set up as well and has assistive devices at home. pt states she is happy to wait in the waiting room until then. pt requests that nurses do not speak to daughter further about information on telephone, just to have them call her personal cell phone.
== END 2025-01-27 21:53 | disposition home or self-care (01) ==
PROVIDERS: Emergency Provider Physician Assistant
DX: N30.00 Acute cystitis without hematuria (principal); S46.911A Strain of unspecified muscle, fascia and tendon at shoulder and upper arm level, right arm, initial encounter; S70.02XA Contusion of left hip, initial encounter; W19.XXXA Unspecified fall, initial encounter
CPT/HCPCS: 36415; 70450; 72125; 73030; 73502; 80053; 81001; 85025; 87077; 87086; 87186; 93005; 99285